=== PATIENT | male | born 1960 | race Caucasian/White ===

== ENCOUNTER 2018-06-19 14:59 | Inpatient (IN) | payer OTHER ==
[2018-06-19] MEDS: ASPIRIN 325 MG TAB PO (19:20)
[2018-06-19 19:30] LABS: ADD MAN DIFF? NO
[2018-06-19] MEDS: NITROGLYCERIN 2% 1 GM OINT PKT TD (19:30)
[2018-06-19 19:41] LABS: WHITE BLOOD COUNT 6.2 10^3/ul (4.8-10.8)
[2018-06-19 19:41] LABS: BASOPHILS % 0.3 % (0.0-2.0); EOSINOPHILS # 0.1 10^3/ul (0.0-0.5); EOSINOPHILS % 1.4 % (0.0-7.0); HEMATOCRIT 43.1 % (42.0-52.0); HEMOGLOBIN 14.9 g/dl (14.0-18.0); LYMPHOCYTES # 1.8 10^3/ul (0.8-2.9); MEAN CORPUSCULAR HEMOGLOBIN 31.3 pg (29.0-33.0); MEAN CORPUSCULAR HGB CONC 34.6 g/dl (32.0-37.0); MEAN CORPUSCULAR VOLUME 90.5 fl (82.0-101.0); MEAN PLATELET VOLUME 9.1 fl (7.4-10.4); MONOCYTE # 0.3 10^3/ul (0.3-0.9); NEUTROPHIL # 4.1 10^3/ul (1.6-7.5); NEUTROPHILS % 65.1 % (39.0-77.0); PLATELET COUNT 208 10^3/UL (140-415); RED BLOOD COUNT 4.76 10^6/ul (4.70-6.10); RED CELL DISTRIBUTION WIDTH 12.2 % (11.5-14.5)
[2018-06-19 19:59] LABS: ANION GAP 12 (8-16); BLOOD UREA NITROGEN 13 mg/dl (7-20); CALCIUM 8.9 mg/dl (8.4-10.2); CARBON DIOXIDE 30 mmol/L (21-31); CHLORIDE 103 mmol/L (97-110); CREATININE 1.04 mg/dl (0.61-1.24); GLUCOSE 201 mg/dl (70-220); POTASSIUM 3.9 mmol/L (3.5-5.1); SODIUM 141 mmol/L (135-144)
[2018-06-19 20:10] LABS: TROPONIN-I < 0.012 ng/ml (0.000-0.120)
[2018-06-19] MEDS ORDERED: ONDANSETRON 4 MG INJ IV (21:00)
[2018-06-19] MEDS ORDERED: ACETAMINOPHEN 325 MG TAB PO (21:00)
[2018-06-20] MEDS: morphine 4 MG/ML VIAL IV (00:38)
[2018-06-20 02:26] LABS: CREATINE KINASE 54 IU/L (23-200)
[2018-06-20 02:37] LABS: CK INDEX 0.9; CK-MB 0.47 ng/ml (0.0-2.4); TROPONIN-I < 0.012 ng/ml (0.000-0.120)
[2018-06-20] MEDS ORDERED: NITROGLYCERIN (SL) 0.4 MG TAB SL (05:30)
[2018-06-20] MEDS ORDERED: ONDANSETRON 4 MG INJ IV (05:30)
[2018-06-20] MEDS ORDERED: ACETAMINOPHEN 325 MG TAB PO (05:30)
[2018-06-20] MEDS ORDERED: NACL 0.9% 3 ML SYG IV (05:30)
[2018-06-20] MEDS ORDERED: ALBUTEROL/IPRATROPIUM (NEB) 3 ML AMP HHN (05:30)
[2018-06-20 06:11] LABS: ADD MAN DIFF? NO
[2018-06-20 06:15] LABS: WHITE BLOOD COUNT 7.3 10^3/ul (4.8-10.8)
[2018-06-20 06:15] LABS: BASOPHILS % 0.3 % (0.0-2.0); EOSINOPHILS # 0.2 10^3/ul (0.0-0.5); EOSINOPHILS % 2.5 % (0.0-7.0); HEMATOCRIT 43.3 % (42.0-52.0); LYMPHOCYTES # 2.7 10^3/ul (0.8-2.9); LYMPHOCYTES % 37.3 % (15.0-51.0); MEAN CORPUSCULAR HEMOGLOBIN 30.8 pg (29.0-33.0); MEAN CORPUSCULAR HGB CONC 34.6 g/dl (32.0-37.0); MEAN CORPUSCULAR VOLUME 88.9 fl (82.0-101.0); MEAN PLATELET VOLUME 9.2 fl (7.4-10.4); MONOCYTE # 0.6 10^3/ul (0.3-0.9); MONOCYTES % 7.6 % (0.0-11.0); NEUTROPHIL # 3.8 10^3/ul (1.6-7.5); PLATELET COUNT 206 10^3/UL (140-415); RED BLOOD COUNT 4.87 10^6/ul (4.70-6.10); RED CELL DISTRIBUTION WIDTH 12.3 % (11.5-14.5)
[2018-06-20 06:47] LABS: ALANINE AMINOTRANSFERASE 22 IU/L (13-69); ALBUMIN 3.6 g/dl (3.3-4.9); ALBUMIN/GLOBULIN RATIO 1.24; ALKALINE PHOSPHATASE 75 IU/L (42-121); ANION GAP 9 (8-16); ASPARTATE AMINO TRANSFERASE 20 IU/L (15-46); BILIRUBIN,INDIRECT 0.3 mg/dl (0-1.1); BILIRUBIN,TOTAL 0.3 mg/dl (0.2-1.3); BLOOD UREA NITROGEN 13 mg/dl (7-20); CALCIUM 8.9 mg/dl (8.4-10.2); CARBON DIOXIDE 28 mmol/L (21-31); CHLORIDE 108 mmol/L (97-110); CHOL/HDL RATIO 6.7 RATIO; CHOLESTEROL 229 mg/dl (100-200); CREATININE 0.92 mg/dl (0.61-1.24); GLUCOSE 98 mg/dl (70-220); HDL CHOLESTEROL 34 mg/dl (28-71); LDL CHOLESTEROL,CALCULATED 152 mg/dl; MAGNESIUM 2.1 mg/dl (1.7-2.5); POTASSIUM 3.9 mmol/L (3.5-5.1); SODIUM 141 mmol/L (135-144); TOTAL PROTEIN 6.5 g/dl (6.1-8.1); TRIGLYCERIDES 217 mg/dl (0-149)
[2018-06-20] MEDS: RANOLAZINE (SR) 500 MG TAB PO (08:48)
[2018-06-20] MEDS: ISOSORBIDE MONONITRATE(SR)60 MG TAB PO (08:49)
[2018-06-20] MEDS: EZETIMIBE 10 MG TAB PO (08:49)
[2018-06-20] MEDS: AMLODIPINE 5 MG TAB PO (08:49)
[2018-06-20] MEDS: CLOPIDOGREL 75 MG TAB PO (08:49)
[2018-06-20] MEDS: LOSARTAN 50 MG TAB PO (08:49)
[2018-06-20] MEDS: HYDROCHLOROTHIAZIDE 25 MG TAB PO (08:51)
[2018-06-20] MEDS: ASPIRIN (EC) 81 MG TAB PO (08:53)
[2018-06-20] MEDS: METOPROLOL 50 MG TAB PO (08:55)
[2018-06-20] MEDS ORDERED: NON-FORMULARY/PATIENT OWN MED (Clopidogrel Bisulfate* 75 MG) PO (09:00)
[2018-06-20] MEDS ORDERED: NON-FORMULARY/PATIENT OWN MED (Isosorbide Mononitrate* 60 MG) PO (09:00)
[2018-06-20] MEDS ORDERED: NON-FORMULARY/PATIENT OWN MED (Losartan-Hydrochlorothiazide (Losartan-HCTZ) 1 TAB) PO (09:00)
[2018-06-20 09:38] LABS: CREATINE KINASE 54 IU/L (23-200)
[2018-06-20 09:49] LABS: CK INDEX 0.7; CK-MB 0.39 ng/ml (0.0-2.4); TROPONIN-I < 0.012 ng/ml (0.000-0.120)
[2018-06-20] MEDS ORDERED: hydrALAzine 20 MG INJ IV (11:00)
[2018-06-20] MEDS: SOD CHLORIDE 0.9% 100 ML (16:26)
[2018-06-20] MEDS: IOHEXOL 300MG/ML 150 ML BTL (16:26)
[2018-06-20] MEDS: ATORVASTATIN 40 MG TAB PO ×2 (21:00→21:09)
[2018-06-20] MEDS: TAMSULOSIN (SR) 0.4 MG CAP PO (21:09)
[2018-06-20] MEDS: ATORVASTATIN 80 MG TAB PO (21:09)
[2018-06-20] MEDS: TERAZOSIN 5 MG CAP PO (21:10)
[2018-06-20] MEDS: ENOXAPARIN 40 MG/0.4 ML SYG SC (21:15)
[2018-06-21 06:03] LABS: ADD MAN DIFF? NO
[2018-06-21 06:14] LABS: WHITE BLOOD COUNT 6.6 10^3/ul (4.8-10.8)
[2018-06-21 06:14] LABS: BASOPHILS % 0.3 % (0.0-2.0); EOSINOPHILS # 0.2 10^3/ul (0.0-0.5); EOSINOPHILS % 2.3 % (0.0-7.0); HEMATOCRIT 43.7 % (42.0-52.0); HEMOGLOBIN 15.3 g/dl (14.0-18.0); LYMPHOCYTES # 2.2 10^3/ul (0.8-2.9); LYMPHOCYTES % 32.8 % (15.0-51.0); MEAN CORPUSCULAR HEMOGLOBIN 31.4 pg (29.0-33.0); MEAN CORPUSCULAR VOLUME 89.5 fl (82.0-101.0); MEAN PLATELET VOLUME 9.1 fl (7.4-10.4); MONOCYTE # 0.6 10^3/ul (0.3-0.9); MONOCYTES % 9.5 % (0.0-11.0); NEUTROPHIL # 3.6 10^3/ul (1.6-7.5); NEUTROPHILS % 54.8 % (39.0-77.0); PLATELET COUNT 206 10^3/UL (140-415); RED BLOOD COUNT 4.88 10^6/ul (4.70-6.10); RED CELL DISTRIBUTION WIDTH 12.2 % (11.5-14.5)
[2018-06-21 06:39] LABS: ANION GAP 12 (8-16); BLOOD UREA NITROGEN 15 mg/dl (7-20); CALCIUM 9.2 mg/dl (8.4-10.2); CARBON DIOXIDE 30 mmol/L (21-31); CHLORIDE 101 mmol/L (97-110); CREATININE 1.14 mg/dl (0.61-1.24); GLUCOSE 120 mg/dl (70-220); MAGNESIUM 1.9 mg/dl (1.7-2.5); PHOSPHORUS 4.4 mg/dl (2.5-4.9); POTASSIUM 3.7 mmol/L (3.5-5.1); SODIUM 139 mmol/L (135-144)
[2018-06-21] MEDS: RANOLAZINE (SR) 500 MG TAB PO (08:45)
[2018-06-21] MEDS: METOPROLOL 50 MG TAB PO (08:45)
[2018-06-21] MEDS: CLOPIDOGREL 75 MG TAB PO (08:45)
[2018-06-21] MEDS: ENOXAPARIN 40 MG/0.4 ML SYG SC (08:56)
[2018-06-21] MEDS: ASPIRIN (EC) 81 MG TAB PO (09:00)
[2018-06-21] MEDS: HYDROCHLOROTHIAZIDE 25 MG TAB PO (09:00)
[2018-06-21] MEDS: ISOSORBIDE MONONITRATE(SR)60 MG TAB PO (09:00)
[2018-06-21] MEDS: LOSARTAN 50 MG TAB PO ×2 (09:00→21:10)
[2018-06-21] MEDS: EZETIMIBE 10 MG TAB PO (10:19)
[2018-06-21] MEDS: AMLODIPINE 5 MG TAB PO (10:19)
[2018-06-21] MEDS: TERAZOSIN 5 MG CAP PO (21:10)
[2018-06-21] MEDS: TAMSULOSIN (SR) 0.4 MG CAP PO (21:10)
[2018-06-21] MEDS: ATORVASTATIN 80 MG TAB PO (21:10)
[2018-06-22] MEDS: ASPIRIN (EC) 81 MG TAB PO (09:00)
[2018-06-22] MEDS: METOPROLOL 50 MG TAB PO ×2 (09:12→21:46)
[2018-06-22] MEDS: RANOLAZINE (SR) 500 MG TAB PO (09:12)
[2018-06-22] MEDS: ISOSORBIDE MONONITRATE(SR)60 MG TAB PO (09:12)
[2018-06-22] MEDS: EZETIMIBE 10 MG TAB PO (09:20)
[2018-06-22] MEDS: LOSARTAN 50 MG TAB PO (09:20)
[2018-06-22] MEDS: CLOPIDOGREL 75 MG TAB PO (09:20)
[2018-06-22] MEDS: AMLODIPINE 5 MG TAB PO (09:20)
[2018-06-22] MEDS: ENOXAPARIN 40 MG/0.4 ML SYG SC (09:21)
[2018-06-22] MEDS: TAMSULOSIN (SR) 0.4 MG CAP PO (21:45)
[2018-06-22] MEDS: ATORVASTATIN 80 MG TAB PO (21:45)
[2018-06-22] MEDS: TERAZOSIN 5 MG CAP PO (21:46)
[2018-06-23 05:46] LABS: ADD MAN DIFF? NO
[2018-06-23 05:51] LABS: BASOPHILS % 0.3 % (0.0-2.0); EOSINOPHILS # 0.2 10^3/ul (0.0-0.5); EOSINOPHILS % 3.1 % (0.0-7.0); HEMATOCRIT 41.8 % (42.0-52.0); HEMOGLOBIN 14.7 g/dl (14.0-18.0); LYMPHOCYTES # 2.3 10^3/ul (0.8-2.9); LYMPHOCYTES % 35.9 % (15.0-51.0); MEAN CORPUSCULAR HEMOGLOBIN 31.5 pg (29.0-33.0); MEAN CORPUSCULAR HGB CONC 35.2 g/dl (32.0-37.0); MEAN CORPUSCULAR VOLUME 89.5 fl (82.0-101.0); MEAN PLATELET VOLUME 9.1 fl (7.4-10.4); MONOCYTE # 0.6 10^3/ul (0.3-0.9); MONOCYTES % 8.6 % (0.0-11.0); NEUTROPHIL # 3.3 10^3/ul (1.6-7.5); NEUTROPHILS % 51.8 % (39.0-77.0); PLATELET COUNT 191 10^3/UL (140-415); RED BLOOD COUNT 4.67 10^6/ul (4.70-6.10); RED CELL DISTRIBUTION WIDTH 12.1 % (11.5-14.5)
[2018-06-23 05:51] LABS: WHITE BLOOD COUNT 6.4 10^3/ul (4.8-10.8)
[2018-06-23 06:14] LABS: ANION GAP 10 (8-16); BLOOD UREA NITROGEN 20 mg/dl (7-20); CALCIUM 8.6 mg/dl (8.4-10.2); CARBON DIOXIDE 27 mmol/L (21-31); CHLORIDE 108 mmol/L (97-110); CREATININE 1.11 mg/dl (0.61-1.24); GLUCOSE 108 mg/dl (70-220); POTASSIUM 4.1 mmol/L (3.5-5.1); SODIUM 141 mmol/L (135-144)
[2018-06-23 06:19] LABS: MAGNESIUM 2.1 mg/dl (1.7-2.5)
[2018-06-23 06:19] LABS: PHOSPHORUS 3.7 mg/dl (2.5-4.9)
[2018-06-23] MEDS: EZETIMIBE 10 MG TAB PO (08:52)
[2018-06-23] MEDS: CLOPIDOGREL 75 MG TAB PO (08:52)
[2018-06-23] MEDS: RANOLAZINE (SR) 500 MG TAB PO (08:53)
[2018-06-23] MEDS: METOPROLOL 50 MG TAB PO (08:54)
[2018-06-23] MEDS: AMLODIPINE 5 MG TAB PO (08:54)
[2018-06-23] MEDS: LOSARTAN 50 MG TAB PO (08:55)
[2018-06-23] MEDS: ISOSORBIDE MONONITRATE(SR)60 MG TAB PO (08:55)
[2018-06-23] MEDS: ASPIRIN (EC) 81 MG TAB PO (09:00)
[2018-06-23] MEDS: ENOXAPARIN 40 MG/0.4 ML SYG SC (09:01)
== END 2018-06-23 11:25 | disposition left against medical advice (07) | DRG 313 ==
LOC: 6WM 20:46 → E/R 14:59 → 6WM 06-20 16:44
DX: R07.89 Other chest pain (principal); I25.10 Atherosclerotic heart disease of native coronary artery without angina pectoris; E66.9 Obesity, unspecified; Z68.30 Body mass index [BMI] 30.0-30.9, adult; I72.4 Aneurysm of artery of lower extremity; N40.0 Benign prostatic hyperplasia without lower urinary tract symptoms; E78.5 Hyperlipidemia, unspecified; R73.03 Prediabetes; F17.200 Nicotine dependence, unspecified, uncomplicated; Z82.49 Family history of ischemic heart disease and other diseases of the circulatory system; Z95.1 Presence of aortocoronary bypass graft; Z79.82 Long term (current) use of aspirin
CPT/HCPCS: 36415; 71045; 74177; 80048; 80053; 80061; 82550; 82553; 83036; 83735; 84100; 84443; 84484; 85025; 93005; 93306; 99285-25; G0378